=== PATIENT | male | born 1970 | race Caucasian/White ===

== ENCOUNTER 2020-10-04 15:22 | Emergency (ER) | payer MEDICARE ==
[~2020-10-04] VITALS: Ht 182.9 cm; Wt 182.3 kg
== END 2020-10-04 23:00 | disposition home or self-care (01) ==
LOC: ER 15:22
DX: D64.9 Anemia, unspecified (principal); E11.9 Type 2 diabetes mellitus without complications; E23.0 Hypopituitarism; E22.0 Acromegaly and pituitary gigantism
CPT/HCPCS: 36415; 36430; 80053; 82272; 85025; 86850; 86900; 86901; 86923; 93005; 93010; 99283-25; J7030; P9016

== ENCOUNTER 2020-11-09 17:59 | Inpatient (IN) | payer MEDICARE ==
[~2020-11-09] VITALS: Ht 188 cm; Wt 185.0 kg
[~2020-11-09 17:59] MED LIST: ALEVE220 MG PO; ANDROGEL TOP; Aspir 8181 MG PO; DESM.01SO; HYDACE5325 PO; HYDCOR10 PO; LEVOTHYROXINE200 MCG PO; LEVSOD200 PO; LORA10ER PO; METF500 PO; METO100ER PO; METO25ER PO; MULVITA PO; NAPR550 PO; OMEP20ER PO; OXYACE5T PO; TRAM50 PO; VITAMIN E PO; [UNRECOGNIZED DRUG - OTHER] SQ
[2020-11-09 19:20] LABS: BASOPHILS ABSOLUTE AUTO 0.18 K/mm3 (0.00-0.23); BASOPHILS PERCENT AUTO 2 % (0-2); EOSINOPHILS ABSOLUTE AUTO 0.63 K/mm3 (0.00-0.68); EOSINOPHILS PERCENT AUTO 7 % (0-6); Hematocrit 33.2 % (37.0-53.0); Hemoglobin 9.2 g/dL (13.5-17.5); IMMATURE GRAN ABSOLUTE AUTO 0.15 K/mm3 (0.00-0.10); IMMATURE GRAN PERCENT AUTO 2 % (0-1); LYMPHOCYTES ABSOLUTE AUTO 2.26 K/mm3 (0.84-5.20); LYMPHOCYTES PERCENT AUTO 25 % (21-46); MONOCYTES ABSOLUTE AUTO 1.51 K/mm3 (0.16-1.47); MONOCYTES PERCENT AUTO 17 % (4-13); Mean Corpuscular HGB 19.4 pg (26.0-34.0); Mean Corpuscular HGB Conc 27.7 g/dL (31.5-36.5); Mean Corpuscular Volume 70 fL (80-100); NEUTROPHILS ABSOLUTE AUTO 4.34 K/mm3 (1.96-9.15); NEUTROPHILS PERCENT AUTO 48 % (41-73); NRBC ABSOLUTE 0.03 K/mm3 (0.00-0.02); NRBC Auto 0.3 /100 WBC (0.0-0.2); Platelet Count 172 K/mm3 (150-400); RDW Coefficient Variation 22.9 % (11.7-14.2); RDW Standard Deviation 54.6 fL (35.1-46.3); Red Blood Cell Count 4.74 M/mm3 (4.30-5.90); White Blood Cell Count 9.07 K/mm3 (4.00-11.30)
[2020-11-09 19:46] LABS: Alanine Aminotransfer (ALT/SGP 29 U/L (12-78); Albumin, Blood 2.7 g/dL (3.4-5.0); Albumin/Globulin Ratio 0.6 (0.8-1.8); Alk Phos 138 U/L (50-136); Anion Gap 7 mmol/L (6-16); Aspartate Aminotrans (AST/SGOT 34 U/L (12-37); Bilirubin, Total 2.4 mg/dL (0.1-1.0); Blood Urea Nitrogen 12 mg/dL (8-24); Bun/Creatinine Ratio 12.4 (12.0-20.0); CO2, Blood 25 mmol/L (21-32); Chloride, Blood 108 mmol/L (98-108); Creatinine, Blood 0.97 mg/dL (0.60-1.20); Globulin, Blood 4.8 g/dL (2.2-4.0); Glomerular Filtration Rate >60 (60-); Glucose, Blood 154 mg/dL (70-99); Potassium, Blood 3.8 mmol/L (3.5-5.5); Sodium, Blood 140 mmol/L (136-145); Total Protein, Blood 7.5 g/dL (6.4-8.2); Troponin I <0.015 ng/mL (0.000-0.040)
[2020-11-09 21:28] LABS: Source, Urine Catheter
[2020-11-09 21:30] LABS: Bilirubin, Urine Neg (Neg); Blood, Urine Neg (Neg); Glucose Qualitative, Urine Neg (Neg); Ketones, Urine Neg (Neg); Leukocyte Esterase, Urine 1+ (Neg); Nitrite, Urine Neg (Neg); Protein, Urine Neg (Neg); Urobilinogen, Urine 3+ (Normal); pH, Urine 6.5 (5.0-8.0)
[2020-11-09 21:42] LABS: U Amphetamine Screen Not Detected; U Barbituate Screen Not Detected; U Benzodiazapine Screen Not Detected; U Cocaine Screen Not Detected; U Methadone Screen Not Detected; U Methamphetamine Screen Not Detected
[2020-11-09 21:43] LABS: U Buprenorphine Screen Not Detected; U Cannabinoids Screen Not Detected; U Opiates Screen Not Detected; U Oxycodone Screen Not Detected; U Phencyclidine Screen Not Detected; U Propoxyphene Screen Not Detected
[2020-11-09 21:44] LABS: Appearance, Urine Clear (Clear); Color, Urine Yellow (P-Yellow)
[2020-11-09 21:45] LABS: Bacteria Rare /hpf; Red Blood Cells, Urine Not Seen /hpf (0-2); Squamous Epithelial Cells Not Seen /hpf (Few)
--- NOTE | 2020-11-10 06:06 | NUR ---
SHIFT SUMMARY PT ARRIVED TO THE UNIT AROUND 314. OVERHEAD LIFT WAS USED TO TRANSFER THE PT TO THE BED. PT WAS ALERT AND ORIENTED TO SELF, FAMILY, AND PLACE, HE WAS UNSURE HOW HE GOT TO THE HOSPITAL, HE DID NOT KNOW THE YEAR AND WAS VERY FORGETFUL. PT HAD SLURRED SPEECH AND WAS DIFFICULT TO UDERSTAND. HE SHOWED MINIMAL L SIDED WEAKNESS WITH NO ARM DRIFT. PT ABLE TO FOLLOW DIRECTIONS, PUPILS MATTHEW. VITALS STABLE WITH BP 130-140'S SYSTOLIC. HR 80'S. O2 SATS >90% ON ROOM AIR, WITH CLEAR SOUNDING LUNGS. PT HAS SIGNIFICANT DEEP PUTTING EDEMA BLE. AT BEDSIDE ABLE TO ANSWER MOST HX QUESTIONS. PT ABLE TO USE URINAL TO VOID. PT NEURO STAUS DID NOT CHANGE T/O THE NIGHT. PT IS A MAX ASSIST DUE TO SIZE AND WEAKNESS. STATES THIS NEURO IS NOT HIS BASELINR, HE IS USUALLY ALERT, ORIENTED.
[2020-11-10 07:37] LABS: Free Thyroxine 1.33 ng/dL (0.70-1.60); Thyroid Stimulating Hormone <0.005 uIU/mL (0.360-4.800)
--- NOTE | 2020-11-10 10:47 | NUR ---
The pt is drowsy, confused. ST Leah Salinas was here to evaluate the patient. He is able to state his name, follow directions at times, and knows that he is in the hospital. However, he is impulsive and forgets his limitations. PERRL. Facial expressions are symmetrical. He has difficulty expressing himself, and cognitive impairment/judgement are present. Left sided weakness and uncoordination noted of the left arm/hand.
--- NOTE | 2020-11-10 10:58 | NUR ---
Call to Dr. Sarabia at this time. Gave her phone number for Dr. Lynne.
--- NOTE | 2020-11-10 11:25 | NUR ---
Dr Sarabia here to see the patient.
--- NOTE | 2020-11-10 12:33 | NUR ---
Call to regarding pt's growth hormone dose. STates he doesn't take it any longer. Updated of pt's condition and plan as it is right now; informed her of visiting hours and rules.
[2020-11-10] MEDS ORDERED: VICTOZA 2-0.6 MG/0.1 SC (12:35)
--- NOTE | 2020-11-10 12:44 | NUR ---
awakes easily. Denies pain, states that his mouth tastes nasty.
--- NOTE | 2020-11-10 14:53 | NUR ---
Daughter Dominga is at the bedside, and she spoke with Dr. Sarabia who came back to round on the patient. Phone call made to pt's to give her an update, at Dominga's request. Will continue to update family when angiogram is completed and more information is known.
--- NOTE | 2020-11-10 16:16 | NUR ---
Raúl, assistant broker to Dr. Young here to see the patient. Daughter Dominga is looking on at bedside.
--- NOTE | 2020-11-10 18:56 | NUR ---
ANGIO Call from [facility] to say that the cervical angiogram was completed, but unable to get all of the pictures since the pt was moving around a lot. States he was having so much shoulder pain that he couldn't be still. Expect pt return to PCU 4 shortly.
--- NOTE | 2020-11-10 23:18 | NUR ---
22:40: TELEPHONE CALL TO DIPESH NUNN: PT IS C/O PAIN IN RIGHT SHOULDER. CHRONIC PAIN MAKING IT DIFFICULT FOR PT TO REST. VERBAL ORDER, READ BACK, GIVE 25 MCG OF FENTANYL IV ONCE. IF NO PAIN RELIEF, GIVE A SECOND DOSE OF 25 MCG OF FENTANYL.
--- NOTE | 2020-11-11 03:11 | NUR ---
50 YO MALE ADMITTED FOR COGNITIVE DEFICITS AND MUSCULAR WEAKNESS DECLINING OVER THE PAST FEW MONTHS. PT EXHIBITS DELAYED RESPONSES TO QUESTIONS ABOUT MEDICAL HISTORY. HE IS A & O TO FAMILY, SURROUNDINGS, PLACE. HE REQUIRES REDIRECTION AND REORIENTATION TO CALL LIGHT, CUEING TO EAT SLOWLY, AND NURSING REMINDERS TO NOT FLEX HIS RIGHT LEG WITH THE SITE OF HIS ANGIOGRAM. ANGIOGRAM SITE IS COVERED WITH A CLEAR DRESSING, NO SWELLING, REDNESS, BLEEDING NOTED. ST 100'S, DENIES CHEST PAIN OR SOB. C/O PAIN TO HIS RIGHT SHOULDER, AND GENERALIZED PAIN THAT IS RELIEVED BY REPOSITIONING AND PRN PAIN MEDICATION. SATING ABOVE 94% ON ROOM AIR. CALL LIGHT IN REACH, WILL CONTINUE TO MONITOR.
--- NOTE | 2020-11-11 06:08 | NUR ---
SHIFT SUMMARY PT'S DIET WAS ADVANCED TOLERATED, HE TOLERATED JELLO, APPLESAUCE, SALTINES WELL WITH A FEEDER AND SUPERVISION AT BEDSIDE. ABLE TO SWALLOW PILLS WITHOUT APPARENT DIFFICULTY. VOIDING WITH URINAL, MAY REQUIRE STANDBY ASSISTANCE AT TIMES TO USE THE URINAL. PT RECEIVED A BED BATH FROM [facility], AFTERWARDS WAS MORE TALKATIVE, ABLE TO TRACK DURING CONVERSATION, AND SHOWED INCREASED STRENGTH IN BILAT HANDS AND FEET. WILL CONTINUE TO MONITOR, CALL LIGHT AT BEDSIDE.
--- NOTE | 2020-11-11 13:12 | NUR ---
ADMIT: 11/09/2020 DISCHARGE: DX: Renal Insufficiency CC: Yves Mack CALL: RESIDENCE: HomeCAREGIVER: Alize Gonsales, Spouse / Partner, MG:Renal insufficiency, HLD, Hypothyroidism, HTN, GERDDME: NoneCCM: [facility]: None
--- NOTE | 2020-11-11 17:46 | NUR ---
END OF SHIFT SUMMARY: SANDING MACHINE OPERATOR WORKING WITH SAW Kothari ASSUMED CARE OF PATIENT AROUND 0700. PATIENT IS ALERT AND ORIENTED. PT HAS DIFFICULTY FINDING THE WORD HE WANTS TO SAY AT TIMES BUT IS ORIENTED. PT HAS GOOD REBAR WORKER STRENGTH BILATERALLY. HE HAS GOOD DORSAL AND PEDIAL FLEXTION AND EXTENSION AND BILATERAL UPPER EXTREMITY WERE 5/5. PATIENTS STATES THAT HE FEELS LIKE HE HAS MADE GOOD IMPROVEMENTS. PATIENT HAS A RIGHT GROIN SITE FROM A SPINAL ANGIOGRAM THAT LOOKS GOOD. NO HEMATOMAS OR ACTIVE BLEEDING. PATIENT WORKED WITH PT AND SPEECH THERAPY TODAY. THERE WAS DISCUSSION ABOUT THE PATIENT BEING TRANSFERED TO [facility] OR [facility]. AT THIS TIME PROVIDER HAS DECIDED TO NOT TRANSFER, THIS MAY BE CHANGED. IS AT BEDSIDE AND REPROTED TO THE PROVIDER THAT HE GETS SIMILAR SYMPTOMS OF ONE SIDED WEAKNESS AND CONFUSION WHEN HE IS NOT ON HIS STEROIDS. TRANSFERING HOSPITAL IS DECIDED WHETHER THIS IS MORE CHRONIC THAN ACUTE. PATIENT IS RESTING IN BED. BED IS IN THE LOWEST POSITION. CALL LIGHT IS WITHIN REACH.
[2020-11-12 03:55] LABS: BASOPHILS ABSOLUTE AUTO 0.03 K/mm3 (0.00-0.23); BASOPHILS PERCENT AUTO 0 % (0-2); EOSINOPHILS PERCENT AUTO 0 % (0-6); Hematocrit 30.1 % (37.0-53.0); Hemoglobin 8.3 g/dL (13.5-17.5); IMMATURE GRAN ABSOLUTE AUTO 0.41 K/mm3 (0.00-0.10); IMMATURE GRAN PERCENT AUTO 2 % (0-1); LYMPHOCYTES PERCENT AUTO 6 % (21-46); MONOCYTES ABSOLUTE AUTO 1.36 K/mm3 (0.16-1.47); MONOCYTES PERCENT AUTO 7 % (4-13); Mean Corpuscular HGB 20.1 pg (26.0-34.0); Mean Corpuscular HGB Conc 27.6 g/dL (31.5-36.5); Mean Corpuscular Volume 73 fL (80-100); NEUTROPHILS ABSOLUTE AUTO 15.89 K/mm3 (1.96-9.15); NEUTROPHILS PERCENT AUTO 84 % (41-73); NRBC ABSOLUTE 0.02 K/mm3 (0.00-0.02); NRBC Auto 0.1 /100 WBC (0.0-0.2); Platelet Count 178 K/mm3 (150-400); Red Blood Cell Count 4.12 M/mm3 (4.30-5.90); White Blood Cell Count 18.89 K/mm3 (4.00-11.30)
[2020-11-12 03:57] LABS: Mean Platelet Volume 10.4 fL (9.1-12.4)
[2020-11-12 04:14] LABS: Alanine Aminotransfer (ALT/SGP 26 U/L (12-78); Albumin, Blood 2.4 g/dL (3.4-5.0); Albumin/Globulin Ratio 0.6 (0.8-1.8); Alk Phos 115 U/L (50-136); Anion Gap 6 mmol/L (6-16); Aspartate Aminotrans (AST/SGOT 31 U/L (12-37); Bilirubin, Total 1.7 mg/dL (0.1-1.0); Blood Urea Nitrogen 14 mg/dL (8-24); Bun/Creatinine Ratio 13.2 (12.0-20.0); CO2, Blood 25 mmol/L (21-32); Calcium, Blood 8.5 mg/dL (8.5-10.1); Chloride, Blood 104 mmol/L (98-108); Creatinine, Blood 1.06 mg/dL (0.60-1.20); Globulin, Blood 4.2 g/dL (2.2-4.0); Glomerular Filtration Rate >60 (60-); Glucose, Blood 305 mg/dL (70-99); Potassium, Blood 4.1 mmol/L (3.5-5.5); Sodium, Blood 135 mmol/L (136-145); Total Protein, Blood 6.6 g/dL (6.4-8.2)
--- NOTE | 2020-11-12 04:43 | NUR ---
SHIFT SUMMARY VSS. PATIENT IS ALERT AND ORIENTED X 4. PATIENT RESTED WELL THROUGHOUT THE NIGHT. NO NEURO DEFICITS NOTED. PATIENT HAS GENERALIZED WEAKNESS AND WAS EXPERIENCING DIFFICULTLY SITUATING HIMSELF IN BED. NO ACUTE CHANGES NOTED OVER SHIFT. WILL CONTINUE TO MONITOR UNTIL END OF SHIFT.
--- NOTE | 2020-11-12 17:54 | NUR ---
END OF SHIFT NOTE: CUSTOMER SUPPLY CHAIN ANALYST WORKING WITH SAW JoseYemi ASSUMED CARE FOR PATIENT AROUND 0700. PATIENT IS ALERT AND ORIENTED X4. LEFT SIDED NEGLECT HAS RESOLVED. PATIENT WORKED WITH PHYSCIAL THERAPY TODAY WHO STATES THAT HE IS DOING WELL AND IS ABLE TO BE SBA WITH A GAIT BELT. PATIENT HAS BEEN GETTING UP TO USE THE RESTROOM. IS AT BEDSIDE AND STATES THAT HE IS NOW GETTING AROUND BETTER THAN HE HAS BEEN FOR THE PAST FEW WEEKS. VSS. GLUCOSE HAS BEEN ELEVATED AND COVERAGE HAS BEEN GIVEN. PROVIDER SAW HIM TODAY AND WOULD TO START TAPERING HIS STEROIDS DOWN BEFORE HE CAN GO HOME. PATIENT HAS NO NEW COMPALINTS AT THIS TIME. HE IS SITTING UP IN A RECLINER TALKING WITH HIS . CALL LIGHT IS WITHIN REACH. PATIENT STATES HE IS FEELING A LOT BETTER.
[2020-11-13 04:15] LABS: BASOPHILS ABSOLUTE AUTO 0.03 K/mm3 (0.00-0.23); BASOPHILS PERCENT AUTO 0 % (0-2); EOSINOPHILS ABSOLUTE AUTO 0.04 K/mm3 (0.00-0.68); EOSINOPHILS PERCENT AUTO 0 % (0-6); Hematocrit 30.2 % (37.0-53.0); Hemoglobin 8.4 g/dL (13.5-17.5); IMMATURE GRAN ABSOLUTE AUTO 0.34 K/mm3 (0.00-0.10); IMMATURE GRAN PERCENT AUTO 2 % (0-1); LYMPHOCYTES ABSOLUTE AUTO 1.39 K/mm3 (0.84-5.20); LYMPHOCYTES PERCENT AUTO 10 % (21-46); MONOCYTES ABSOLUTE AUTO 1.35 K/mm3 (0.16-1.47); MONOCYTES PERCENT AUTO 10 % (4-13); Mean Corpuscular HGB 20.5 pg (26.0-34.0); Mean Corpuscular HGB Conc 27.8 g/dL (31.5-36.5); Mean Corpuscular Volume 74 fL (80-100); NEUTROPHILS ABSOLUTE AUTO 10.94 K/mm3 (1.96-9.15); NEUTROPHILS PERCENT AUTO 78 % (41-73); NRBC ABSOLUTE 0.02 K/mm3 (0.00-0.02); NRBC Auto 0.1 /100 WBC (0.0-0.2); Platelet Count 162 K/mm3 (150-400); RDW Coefficient Variation 25.7 % (11.7-14.2); RDW Standard Deviation 55.1 fL (35.1-46.3); White Blood Cell Count 14.09 K/mm3 (4.00-11.30)
[2020-11-13 04:35] LABS: Alanine Aminotransfer (ALT/SGP 33 U/L (12-78); Albumin, Blood 2.4 g/dL (3.4-5.0); Albumin/Globulin Ratio 0.6 (0.8-1.8); Alk Phos 114 U/L (50-136); Anion Gap 4 mmol/L (6-16); Aspartate Aminotrans (AST/SGOT 38 U/L (12-37); Bilirubin, Total 1.4 mg/dL (0.1-1.0); Blood Urea Nitrogen 13 mg/dL (8-24); Bun/Creatinine Ratio 13.8 (12.0-20.0); CO2, Blood 27 mmol/L (21-32); Calcium, Blood 8.3 mg/dL (8.5-10.1); Chloride, Blood 104 mmol/L (98-108); Creatinine, Blood 0.94 mg/dL (0.60-1.20); Globulin, Blood 4.2 g/dL (2.2-4.0); Glomerular Filtration Rate >60 (60-); Glucose, Blood 311 mg/dL (70-99); Potassium, Blood 4.1 mmol/L (3.5-5.5); Sodium, Blood 135 mmol/L (136-145); Total Protein, Blood 6.6 g/dL (6.4-8.2)
--- NOTE | 2020-11-13 05:36 | NUR ---
SHIFT SUMMARY NO ACUTE CHANGES THIS SHIFT. PT AXO. IN SR. VSS. SHOWS CONTINUED IMPROVEMENT NEUROLOGICALLY/MUSCULOSKELETAL. NO DEFICITS NOTED UNILATERALLY. PT TOLERATING STANDING AND WALKING WELL, STILL GETS TIRED EASILY BUT PT STATES "THIS IS THE BEST I HAVE WALKED IN A MONTH". OTHERWIE, PT HAS BEEN RESTING OFF AND ON THIS SHIFT. WCTM.
--- NOTE | 2020-11-13 12:04 | NUR ---
TRANSFERED TO MEDICAL FLOOR TO 334. REPORT GIVEN TO ALISHA RIVERA. PT ALERT AND ORIENTED X4. VSS. NO NEW COMPLAINTS FROM THE PATIENT PRIOR TO LEAVING THE UNIT. ALL BELONGINGS, INCLUDING WALKER WAS SENT TO THE MEDICAL FLOOR WITH THE PATIENT.
--- NOTE | 2020-11-13 17:42 | NUR ---
SHIFT SUMMARY PATIENT TRANSFERED TO THE FLOOR MID-SHIFT. PATIENT ALERT AND ORIENTED UPON ARRIVAL. PATIENT TRANSFERED FROM THE GURNEY TO THE BED INDEPENDENTLY WITH SBA. PATIENT MADE COMFORTABLE AND ORIENTED TO THE ROOM. PATIENT'S FAMILY IN THE ROOM DURING VISITING HOURS. PATIENT SHOWERED WITH FAMILY ASSISTANCE PER PATIENT REQUEST. PATIENT SITTING UP IN BED, DENIES FURTHER NEEDS FOR THE REMAINDER OF THE SHIFT. PATIENT'S REMAINS IN THE ROOM VISITING. PATIENT CURRENTLY SITTING UP ON THE BEDSIDE EATING DINNER.
[2020-11-13] MEDS ORDERED: ATOR10 PO (22:50)
[2020-11-13] MEDS ORDERED: DESMOPRESSIN A0.1 MG PO (22:53)
[2020-11-13] MEDS ORDERED: DESMOPRESSIN A0.1 M1 PO (22:54)
[2020-11-13] MEDS ORDERED: DEPO-TESTO200 MG/1 M IM (22:55)
[2020-11-13] MEDS ORDERED: LEVSOD25 PO (22:56)
[2020-11-13] MEDS ORDERED: BUME1 PO (22:58)
[2020-11-13] MEDS ORDERED: HYDCOR10 PO (23:00)
--- NOTE | 2020-11-14 04:12 | NUR ---
SUMMARY: PT A/OX4, CALLS APPROPRIATELY AND IS SBA IN ROOM D/T WEAKNESS AND POSSIBLE FALL RISK. HE HAD X1 XL FORMED BM THIS SHIFT AND VOIDS W/O ISSUES. SUGARFREE SNACKS WERE PROVIDED PRN BUT PT FOREIGNQ REQUESTED PUDDING AND JANICE CRACKERS DESPITE ADA DIET REMINDERS. HE REMAINS NSR AT 90'S BPM ON TELEMETRY. BRUISED L.FOOT NOTED BUT PT DENIES KNOWLEGE OF INJURY. NO ACUTE CHANGES, VSS/AFEBRILE. WCTM AND REPORT TO DAY RN.
[2020-11-14 05:17] LABS: BASOPHILS ABSOLUTE AUTO 0.02 K/mm3 (0.00-0.23); BASOPHILS PERCENT AUTO 0 % (0-2); EOSINOPHILS ABSOLUTE AUTO 0.08 K/mm3 (0.00-0.68); EOSINOPHILS PERCENT AUTO 1 % (0-6); Hematocrit 33.1 % (37.0-53.0); Hemoglobin 9.3 g/dL (13.5-17.5); IMMATURE GRAN ABSOLUTE AUTO 0.28 K/mm3 (0.00-0.10); IMMATURE GRAN PERCENT AUTO 3 % (0-1); LYMPHOCYTES ABSOLUTE AUTO 1.13 K/mm3 (0.84-5.20); LYMPHOCYTES PERCENT AUTO 11 % (21-46); MONOCYTES ABSOLUTE AUTO 0.83 K/mm3 (0.16-1.47); MONOCYTES PERCENT AUTO 8 % (4-13); Mean Corpuscular HGB 20.9 pg (26.0-34.0); Mean Corpuscular HGB Conc 28.1 g/dL (31.5-36.5); Mean Corpuscular Volume 74 fL (80-100); NEUTROPHILS ABSOLUTE AUTO 7.59 K/mm3 (1.96-9.15); NEUTROPHILS PERCENT AUTO 76 % (41-73); NRBC ABSOLUTE 0.02 K/mm3 (0.00-0.02); NRBC Auto 0.2 /100 WBC (0.0-0.2); Platelet Count 143 K/mm3 (150-400); RDW Coefficient Variation 26.8 % (11.7-14.2); RDW Standard Deviation 55.4 fL (35.1-46.3); Red Blood Cell Count 4.46 M/mm3 (4.30-5.90); White Blood Cell Count 9.93 K/mm3 (4.00-11.30)
[2020-11-14 05:39] LABS: Alanine Aminotransfer (ALT/SGP 51 U/L (12-78); Albumin, Blood 2.7 g/dL (3.4-5.0); Albumin/Globulin Ratio 0.6 (0.8-1.8); Alk Phos 140 U/L (50-136); Anion Gap 5 mmol/L (6-16); Aspartate Aminotrans (AST/SGOT 56 U/L (12-37); Bilirubin, Total 1.6 mg/dL (0.1-1.0); Blood Urea Nitrogen 12 mg/dL (8-24); Bun/Creatinine Ratio 13.1 (12.0-20.0); CO2, Blood 27 mmol/L (21-32); Calcium, Blood 8.7 mg/dL (8.5-10.1); Chloride, Blood 104 mmol/L (98-108); Creatinine, Blood 0.92 mg/dL (0.60-1.20); Globulin, Blood 4.5 g/dL (2.2-4.0); Glomerular Filtration Rate >60 (60-); Glucose, Blood 330 mg/dL (70-99); Potassium, Blood 3.9 mmol/L (3.5-5.5); Sodium, Blood 136 mmol/L (136-145); Total Protein, Blood 7.2 g/dL (6.4-8.2)
--- NOTE | 2020-11-14 09:08 | NUR ---
STUDENT ASSESSMENT REVIEW I HAVE REVIEWED THE STUDENT'S ASSESSMENT, I HAVE COMPLETED MY OWN ASSESSMENT, AND I AGREE WITH THE STUDENT'S FINDINGS.
--- NOTE | 2020-11-14 15:26 | NUR ---
DISCHARGE SUMMARY PATIENT DISCHARGED TO HOME VIA PERSONAL AUTOMOBILE BY DAUGHTER AND . PATIENT ALERT AND ORIENTED. PATIENT WORKED WITH OCCUPATIONAL THERAPY THIS SHIFT. PATIENT WITH EQUAL STRENTH BILATERALLY THIS SHIFT. PATIENT VERBALLY AGREED AND UNDERSTOOD DISCHARGE INSTRUCTIONS. PATIENT DENIES ADDITIONAL NEEDS AT THIS TIME. PATIENT WHEELED OUT TO CAR BY THIS SCHOOL INSPECTOR WITH AND DAUGHTER WAITING IN CAR.
--- NOTE | 2020-11-14 16:13 | NUR ---
11/14/20- Per chart review with Dr. Flores, pt is stable to d/c home. Met with pt and he states that pt's or daughter will come to get him. His pharmacy is [facility] on [address]. His is able to help him in the home with any needs. Pt has no DME needs at this time. Pt states that there are a few stairs to get into the home and there are railings. He has no concerns using them. Reviewed MICHELLE letter, pt acknowledged understanding. -yoko
== END 2020-11-14 15:15 | disposition home or self-care (01) | DRG 644 ==
LOC: ER 17:59 → PCU 11-10 00:55 → MEDS 11-13 11:10 → ENPENDDIS 11-14 13:04 → MEDS 11-14 15:15
PROVIDERS: Emergency Medicine; Family Medicine; ADMIT Internal Medicine
PROC: B31R1ZZ Fluoroscopy of Intracranial Arteries using Low Osmolar Contrast (ICD-10-PCS; principal; 2020-11-10)
DX: E27.40 Unspecified adrenocortical insufficiency (principal); Z68.43 Body mass index [BMI] 50.0-59.9, adult; R41.4 Neurologic neglect syndrome; G93.49 Other encephalopathy; N39.0 Urinary tract infection, site not specified; D53.9 Nutritional anemia, unspecified; R47.81 Slurred speech; E89.3 Postprocedural hypopituitarism; I67.9 Cerebrovascular disease, unspecified; E86.0 Dehydration; E11.9 Type 2 diabetes mellitus without complications; E22.0 Acromegaly and pituitary gigantism; E66.01 Morbid (severe) obesity due to excess calories; E03.9 Hypothyroidism, unspecified; I10 Essential (primary) hypertension; Z96.643 Presence of artificial hip joint, bilateral; Z79.82 Long term (current) use of aspirin; Z79.52 Long term (current) use of systemic steroids; Z79.899 Other long term (current) drug therapy; Z79.84 Long term (current) use of oral hypoglycemic drugs; Z98.890 Other specified postprocedural states
CPT/HCPCS: 36223; 36226-50; 36415; 70450; 70496; 70498; 80053; 81001; 82947; 83880; 84439; 84443; 84484; 85025; 87086; 92507; 92523; 92610; 93005; 93010; 96376; 97110; 97116; 97162; 97166; 97530; 97535; 99152; 99153; 99285-25; A9270; C1760; C1769; C1887; C1894; J1644; J1650; J1720; J1885; J2250; J3010; J7030; J7040; J7050; Q9967

== ENCOUNTER 2020-12-19 16:05 | Observation (INO) | payer MEDICARE ==
[~2020-12-19] VITALS: Ht 182.9 cm; Wt 181.4 kg
[~2020-12-19 16:05] MED LIST changes: +ATOR10 PO; +BUME1 PO; +DEPO-TESTO200 MG/1 M IM; +DESMOPRESSIN A0.1 M1 PO; +DESMOPRESSIN A0.1 MG PO; +LEVSOD25 PO; +VICTOZA 2-0.6 MG/0.1 SC
[2020-12-19] MEDS ORDERED: VITAMIN D31000 UNI1 PO (16:25)
[2020-12-19] MEDS ORDERED: FISH OIL 1,2001 EAC7 PO (16:25)
[2020-12-19] MEDS ORDERED: Apple Cider Vi300 MG PO (16:26)
[2020-12-19] MEDS ORDERED: HYDCOR10 PO ×2 (21:42→21:49)
[2020-12-19] MEDS ORDERED: Prilosec10 M1 PO (21:43)
[2020-12-19] MEDS ORDERED: BUME1 PO (21:44)
[2020-12-20 02:19] LABS: SARS-Cov-2 (COVID-19) PCR, MMC NEGATIVE (NEGATIVE)
--- NOTE | 2020-12-20 04:34 | NUR ---
SHIFT SUMMARY ER ADMIT THIS SHIFT WITH L ANKLE FX. ORTHO CONSULTED IN ER AND PLANS TO TAKE PT FOR ORIF TODAY. NPO SINCE MIDNIGHT. USING URINAL TO VOID. L ANKLE SPLINTED AND RADHA WRAP REMAINS CDI. LLE ELEVATED ON PILLOWS. 1 PAIN PILL + IV TORADOL FOR PAIN PER ORDERS. PT USES CALL LIGHT APPRORPRIATELY.
--- NOTE | 2020-12-20 10:01 | NUR ---
PCP: KAMILLE Saucedo Inpatient Physician: Dr. Galdamez ADMIT: 12/19/20 Dx: Elisa smith. CC: Yves Ordaz Recent Hospitalizations: 11/09/20 - 11/14/20 RENAL INSUFFICIENCY CODE STATUS: Full code. is power of corporate associate attorney RESIDENCE: [address] [place] [id number] CAREGIVER: Alize Gonsales, Spouse / Partner,
--- NOTE | 2020-12-20 11:30 | NUR ---
pt left for surgery at this time. iv hydrocortisone given per dr saul for stress dose. r/t adrenal insufficiency.
--- NOTE | 2020-12-20 12:04 | NUR ---
History, Chart, Medications and Allergies reviewed before start of procedure.Lungs clear T/O to Auscultation. Patient confirms NPO status and agrees with scheduled surgery. WILL PUT GLASSES IN PACU. PT RECEIVED A STRESS DOSE OF HYDROCORTOSINE. LABS DRAWN.
[2020-12-20 12:25] LABS: BASOPHILS ABSOLUTE AUTO 0.05 K/mm3 (0.00-0.23); BASOPHILS PERCENT AUTO 1 % (0-2); EOSINOPHILS ABSOLUTE AUTO 0.28 K/mm3 (0.00-0.68); EOSINOPHILS PERCENT AUTO 3 % (0-6); Hematocrit 32.9 % (37.0-53.0); Hemoglobin 9.7 g/dL (13.5-17.5); IMMATURE GRAN PERCENT AUTO 1 % (0-1); LYMPHOCYTES ABSOLUTE AUTO 0.89 K/mm3 (0.84-5.20); LYMPHOCYTES PERCENT AUTO 10 % (21-46); MONOCYTES ABSOLUTE AUTO 0.71 K/mm3 (0.16-1.47); MONOCYTES PERCENT AUTO 8 % (4-13); Mean Corpuscular HGB 24.1 pg (26.0-34.0); Mean Corpuscular HGB Conc 29.5 g/dL (31.5-36.5); Mean Corpuscular Volume 82 fL (80-100); Mean Platelet Volume 10.2 fL (9.1-12.4); NEUTROPHILS ABSOLUTE AUTO 6.99 K/mm3 (1.96-9.15); NEUTROPHILS PERCENT AUTO 77 % (41-73); Platelet Count 122 K/mm3 (150-400); RDW Coefficient Variation 24.8 % (11.7-14.2); RDW Standard Deviation 74.4 fL (35.1-46.3); Red Blood Cell Count 4.03 M/mm3 (4.30-5.90); White Blood Cell Count 9.02 K/mm3 (4.00-11.30)
[2020-12-20 12:55] LABS: Alanine Aminotransfer (ALT/SGP 43 U/L (12-78); Albumin, Blood 2.2 g/dL (3.4-5.0); Albumin/Globulin Ratio 0.5 (0.8-1.8); Alk Phos 165 U/L (50-136); Anion Gap 1 mmol/L (6-16); Aspartate Aminotrans (AST/SGOT 40 U/L (12-37); Bilirubin, Total 1.9 mg/dL (0.1-1.0); Blood Urea Nitrogen 16 mg/dL (8-24); Bun/Creatinine Ratio 17.6 (12.0-20.0); CO2, Blood 33 mmol/L (21-32); Calcium, Blood 8.4 mg/dL (8.5-10.1); Chloride, Blood 104 mmol/L (98-108); Creatinine, Blood 0.91 mg/dL (0.60-1.20); Globulin, Blood 4.1 g/dL (2.2-4.0); Glomerular Filtration Rate >60 (60-); Glucose, Blood 156 mg/dL (70-99); Potassium, Blood 4.6 mmol/L (3.5-5.5); Sodium, Blood 138 mmol/L (136-145); Total Protein, Blood 6.3 g/dL (6.4-8.2)
--- NOTE | 2020-12-20 13:34 | NUR ---
12/20/20 Hiram4 [id number] USED FOR THE PROCEDURE.
--- NOTE | 2020-12-20 16:11 | NUR ---
PT ARRIVED FROM PACU. DENIES PAIN IN LLE. WIGGLES TOES AND HAS FULL SENSATION. CAP REFILL <3. PT WILL CALL IF HE HAS ANY NUMBNESS OR IF PAIN INCREASES. HE DENIES SOB AND IS CURRENTLY ON ROOM AIR. CURRENTLY SITTING UP IN BED TALKIN ON THE PHONE WITH IN ROOM. HE HAS TOLERATED SIPS OF WATER AND IS ATTEMPTING PO INTAKE. CALL LIGHT IN REACH.
--- NOTE | 2020-12-20 17:37 | NUR ---
NO ACUTE CHANGES SINCE ARRIVAL TO FLOOR PT IS TOLERATING PO WELL WITH NO NAUSEA OR PAIN. CONTINUES TO DENY PAIN. HAS BEEN ON HIS PHONE SPEAKING WITH FAMILY AT THIS TIME. PLAN WILL BE TO WORK WITH PT/OT TOMORROW AND CONTINUE WITH PAIN MANAGEMENT.
[2020-12-21 05:13] LABS: BASOPHILS ABSOLUTE AUTO 0.03 K/mm3 (0.00-0.23); BASOPHILS PERCENT AUTO 0 % (0-2); EOSINOPHILS ABSOLUTE AUTO 0.14 K/mm3 (0.00-0.68); EOSINOPHILS PERCENT AUTO 1 % (0-6); Hematocrit 28.9 % (37.0-53.0); Hemoglobin 8.6 g/dL (13.5-17.5); IMMATURE GRAN ABSOLUTE AUTO 0.19 K/mm3 (0.00-0.10); IMMATURE GRAN PERCENT AUTO 2 % (0-1); LYMPHOCYTES ABSOLUTE AUTO 1.48 K/mm3 (0.84-5.20); LYMPHOCYTES PERCENT AUTO 12 % (21-46); MONOCYTES ABSOLUTE AUTO 1.45 K/mm3 (0.16-1.47); MONOCYTES PERCENT AUTO 11 % (4-13); Mean Corpuscular HGB 24.2 pg (26.0-34.0); Mean Corpuscular HGB Conc 29.8 g/dL (31.5-36.5); Mean Corpuscular Volume 81 fL (80-100); Mean Platelet Volume 10.8 fL (9.1-12.4); NEUTROPHILS ABSOLUTE AUTO 9.57 K/mm3 (1.96-9.15); NEUTROPHILS PERCENT AUTO 74 % (41-73); Platelet Count 145 K/mm3 (150-400); RDW Coefficient Variation 24.6 % (11.7-14.2); RDW Standard Deviation 72.6 fL (35.1-46.3); Red Blood Cell Count 3.55 M/mm3 (4.30-5.90); White Blood Cell Count 12.86 K/mm3 (4.00-11.30)
--- NOTE | 2020-12-21 06:46 | NUR ---
SHIFT SUMMARY POD1 ORIF L ANKLE, A/O X4, VSS, TOLERATING PO, VOIDING, PT HAS BEEN IN BED WAITING PT LATER TODAY, DENIES PAIN T/O SHIFT, PT PLEASANT AND COOPERATIVE WITH ALL NURSING STAFF AND CARE. NO ACUTE EVENTS THIS SHIFT. CALL LIGHT IN REACH, WILL CTM AND REPORT TO DAY RN.
--- NOTE | 2020-12-21 13:48 | NUR ---
USED LIFT TO TRANSFER PT BACK TO BED.
--- NOTE | 2020-12-21 14:49 | NUR ---
12/21/20 Update: Per PT notes SNF recommended due to progress potential with inpatient rehab. Unfortunately pt. is considered bariatric which will create a barrier to SNF placement (weight 399 lbs). Discussed with Dr. Galdamez the concerns regarding placement. Pt. could potentially complete PT with HH at home. I will hold off on moving forward with discussion with pt. and family at this time. Will visit pt. in the am after chart review.
--- NOTE | 2020-12-21 17:09 | NUR ---
SUMMARY NO ACUTE CHANGES T/O SHIFT. TRANSFERRED PT TO LIFT ROOM. ORDERS TO BE NONWB LLE. THERAPY USED LIFT AND TRANSFERRED PT TO RECLINER. PT SAT UP FOR APPROXIMATELY HOUR AND HALF AND THEN ASKED TO RETURN TO BED DUE TO PAIN IN LLE R/T POSITION OF LEG ON RECLINER. PT MEDICATED PER ORDERS FOR PAIN ONCE DURING SHIFT. PT ABLE TO WIGGLE TOES AND HAS BRISK CAP REFILL TO LLE. DRESSING TO LLE CDI. PASSING FLATUS BUT NO BM. COVERED CBGS PER ORDERS. CALL LIGHT IN REACH.
[2020-12-22 04:44] LABS: BASOPHILS ABSOLUTE AUTO 0.04 K/mm3 (0.00-0.23); BASOPHILS PERCENT AUTO 0 % (0-2); EOSINOPHILS ABSOLUTE AUTO 0.35 K/mm3 (0.00-0.68); EOSINOPHILS PERCENT AUTO 4 % (0-6); Hematocrit 28.2 % (37.0-53.0); Hemoglobin 8.4 g/dL (13.5-17.5); IMMATURE GRAN ABSOLUTE AUTO 0.18 K/mm3 (0.00-0.10); IMMATURE GRAN PERCENT AUTO 2 % (0-1); LYMPHOCYTES ABSOLUTE AUTO 1.28 K/mm3 (0.84-5.20); LYMPHOCYTES PERCENT AUTO 13 % (21-46); MONOCYTES ABSOLUTE AUTO 1.26 K/mm3 (0.16-1.47); MONOCYTES PERCENT AUTO 13 % (4-13); Mean Corpuscular HGB 23.9 pg (26.0-34.0); Mean Corpuscular HGB Conc 29.8 g/dL (31.5-36.5); Mean Corpuscular Volume 80 fL (80-100); Mean Platelet Volume 10.3 fL (9.1-12.4); NEUTROPHILS ABSOLUTE AUTO 6.46 K/mm3 (1.96-9.15); NEUTROPHILS PERCENT AUTO 67 % (41-73); Platelet Count 125 K/mm3 (150-400); RDW Coefficient Variation 24.4 % (11.7-14.2); RDW Standard Deviation 71.9 fL (35.1-46.3); Red Blood Cell Count 3.51 M/mm3 (4.30-5.90); White Blood Cell Count 9.57 K/mm3 (4.00-11.30)
--- NOTE | 2020-12-22 07:35 | NUR ---
SHIFT SUMMARY POD2 L ANKLE ORIF, A/O X4, VSS, TOLERATING PO, DENIES PAIN, VOIDING, TO STREAK BM THIS SHIFT BUT PASSING LOTS OF FLATUS. NO ACUTE EVENTS THIS SHIFT, ICE PACK TO L ANKLE. CALL LIGHT IN REACH, REPORT GIVEN TO DAY RN.
--- NOTE | 2020-12-22 14:33 | NUR ---
Update 12/22/20: Discussed options for rehab with pt. this am. He is feeling a bit overwhelmed at this time. I have requested that SNF [facility] review chart for potential rehab stay. Though they are considering accepting pt., he is aware that there is potential they will not accept him. We discussed the alternatives as well including HH PT and aguila lift to assist family in providing care. Will discuss further with patient's when she arrives. Pt. will need a prior auth for SNF if accepted.
--- NOTE | 2020-12-22 17:05 | NUR ---
SUMMARY: PT IS POD2 L ANKLE ORIF. A/O, VSS, CSM INTACT TO L LEG. OT AND PT IN ROOM TODAY TO ASSIST WITH LIFT TRANSFER TO CHAIR, SEE THERAPY NOTES. PT REPORTS PAIN ONLY AFTER MOVEMENT AND THERAPY. PT HAD LARGE BM TODAY. PREVENTATIVE MEPILEX PLACED AT COCCYX. PT TURNED Q2 PRN, L ANKLE ELEVATED AND ICED. MEPILEX ALSO PLACED AT L CALF WHERE THERE APPEARED TO BE AN ABRASION. OTHERWISE NO CHANGE TODAY. INTERNAL COMBUSTION ENGINE ASSEMBLER DISCUSSED DC OPTIONS/REHAB TODAY WITH PT. NO ACUTE CONCERNS.
--- NOTE | 2020-12-23 05:28 | NUR ---
SHIFT SUMMARY: PT POD#3 FOR AN ORIF TO LEFT ANKLE. SPLINT+RADHA C/D/I. PT ABLE TO WIGGLE TOES. CAP REFILL WNL. EXTREMITY ELEVATED ON PILLOW. SCROTUM SWOLLEN AND ELEVATED USING PILLOW CASE. PT ALSO GIVEN ICE PACK PER REQUEST. VOIDING IN URINAL WHICH PT REPORTS IS DIFFICULT D/T SWELLING. PT DENIES NEED FOR PAIN MEDICATION THIS SHIFT. REPOSITIONED T/O SHIFT USING LIFT. PLAN FOR PT/OT. AWAITING POSSIBLE SNF PLACEMENT.
--- NOTE | 2020-12-23 12:04 | NUR ---
12/23/20 - pt has been cleared both medically and from ortho to go either to SNF or home with home health. Spoke with who reports that they are not setup in the home to take him back at this time. She would like him to go to SNF. [facility] declined the pt at both [facility]. Speaking with [facility] care managers, there are no bariatric bends available in the state at this time. Tried to call the and discuss this with her. LMOM to call back. Updated Dr. Galdamez and floor nurse. -kjw
--- NOTE | 2020-12-23 19:32 | NUR ---
SUMMARY: PT IS POD3 L ANKLE ORIF. A/O, VSS. L ANKLE IN SPLINT CDI, ELEVATED ON PILLOWS. PT HAD MINIMAL PAIN. ABLE TO TRANSFER PT TO CHAIR WITH LIFT AND PT/OT WORKED WITH PT, SEE NOTES. CBG'S BETTER TODAY. PT HAD BM X1. SCROTUM IS SWOLLEN. ICED AND ELEVATED TODAY. PT AND PT FAMILY ARE AWARE OF PLAN FOR HH, SEE IMAGE EDITOR NOTES. NO SAFETY CONCERNS AT THIS TIME.
--- NOTE | 2020-12-24 03:55 | NUR ---
PSTIENT ALERT AND ORIENTED. VSS ON RA. DENIES PAIN. L LEG ELEVATED, ICE APPLIED TO SCROTUM. REPOSITIONED Q2HR. USING CALL LIGHT TO MAKE NEEDS KNOWN.
[2020-12-24 04:32] LABS: BASOPHILS ABSOLUTE AUTO 0.06 K/mm3 (0.00-0.23); BASOPHILS PERCENT AUTO 1 % (0-2); EOSINOPHILS ABSOLUTE AUTO 0.42 K/mm3 (0.00-0.68); EOSINOPHILS PERCENT AUTO 4 % (0-6); Hematocrit 28.7 % (37.0-53.0); Hemoglobin 8.6 g/dL (13.5-17.5); IMMATURE GRAN PERCENT AUTO 2 % (0-1); LYMPHOCYTES ABSOLUTE AUTO 1.31 K/mm3 (0.84-5.20); LYMPHOCYTES PERCENT AUTO 13 % (21-46); MONOCYTES ABSOLUTE AUTO 1.18 K/mm3 (0.16-1.47); MONOCYTES PERCENT AUTO 12 % (4-13); Mean Corpuscular HGB 23.9 pg (26.0-34.0); Mean Corpuscular Volume 80 fL (80-100); NEUTROPHILS ABSOLUTE AUTO 6.81 K/mm3 (1.96-9.15); NEUTROPHILS PERCENT AUTO 68 % (41-73); Platelet Count 127 K/mm3 (150-400); RDW Coefficient Variation 23.7 % (11.7-14.2); RDW Standard Deviation 68.6 fL (35.1-46.3); White Blood Cell Count 9.98 K/mm3 (4.00-11.30)
[2020-12-24 04:33] LABS: Mean Platelet Volume 10.7 fL (9.1-12.4)
[2020-12-24 04:49] LABS: Alanine Aminotransfer (ALT/SGP 36 U/L (12-78); Albumin, Blood 1.9 g/dL (3.4-5.0); Albumin/Globulin Ratio 0.5 (0.8-1.8); Alk Phos 145 U/L (50-136); Anion Gap 5 mmol/L (6-16); Aspartate Aminotrans (AST/SGOT 35 U/L (12-37); Bilirubin, Total 1.3 mg/dL (0.1-1.0); Blood Urea Nitrogen 20 mg/dL (8-24); Bun/Creatinine Ratio 24.3 (12.0-20.0); CO2, Blood 28 mmol/L (21-32); Calcium, Blood 7.9 mg/dL (8.5-10.1); Chloride, Blood 104 mmol/L (98-108); Creatinine, Blood 0.82 mg/dL (0.60-1.20); Globulin, Blood 3.9 g/dL (2.2-4.0); Glomerular Filtration Rate >60 (60-); Glucose, Blood 155 mg/dL (70-99); Potassium, Blood 4.5 mmol/L (3.5-5.5); Sodium, Blood 137 mmol/L (136-145); Total Protein, Blood 5.8 g/dL (6.4-8.2)
--- NOTE | 2020-12-24 17:54 | NUR ---
SHIFT SUMMARY PT A&OX4, VSS, POD4 LEFT ANKLE ORIF, SPLINT/RADHA, ELEVATED, DENIES PAIN, RONAL PO, CBG REQ COVERAGE, VOIDING USING URINAL, REPOSITION WITH ASSISTANCE, PT WORKED WITH PT TODAY/UNABLE TO WEIGHT BEAR ON NON-SURGICAL RLE. WILL REPORT TO ONCOMING NOC RN.
--- NOTE | 2020-12-25 05:46 | NUR ---
PT ALERT AND ORIENTED. VSS ON RA. PAIN MANAGED WELL W/ ONE NORCO AND REPOSITIONING. REPOSITIONED Q2HR USING TORI LIFT. USING URINAL, NEEDING ASSISTANCE D/T SWELLING. L LEG ELEVATE ON PILLOWS. USING CALL LIGHT TO MAKE NEEDS KNOWN.
[2020-12-25] MEDS ORDERED: Norco 5-325 Ta1 EACH PO (14:12)
[2020-12-25] MEDS ORDERED: MIRALAX17 GM PO (14:13)
--- NOTE | 2020-12-25 16:32 | NUR ---
DISCHARGE SUMMARY PT A&OX4, VSS, LEFT FLOOR VIA GURNEY WITH TRANSPORT TO GO HOME. AND DAUGHTER TOOK ALL PERSONAL POSSESSIONS INCLUDING DC PACKET AND 1 NARC SCRIPT. DC INS PROVIDED, PT AND FAMILY REP UNDERSTANDING THOSE INSTRUCTIONS, INCLUDING POTENTIAL TRANSPORT COSTS, AFTER SUBMITTING TO PRIVATE INS BY TRANSPORT [email or web address]. IV DC'D.
== END 2020-12-25 16:34 | disposition home or self-care (01) ==
LOC: ER 16:05 → SURS 22:08
PROVIDERS: Internal Medicine; Orthopaedic Surgery; ADMIT Family Medicine
PROC: 0QSH04Z Reposition Left Tibia with Internal Fixation Device, Open Approach (ICD-10-PCS; principal; 2020-12-20 12:30)
PROC: 0QSK04Z Reposition Left Fibula with Internal Fixation Device, Open Approach (ICD-10-PCS; principal; 2020-12-20 12:30)
DX: S82.842A Displaced bimalleolar fracture of left lower leg, initial encounter for closed fracture (principal); X50.0XXA Overexertion from strenuous movement or load, initial encounter; W18.30XA Fall on same level, unspecified, initial encounter; E03.9 Hypothyroidism, unspecified; I10 Essential (primary) hypertension; E27.40 Unspecified adrenocortical insufficiency; E22.0 Acromegaly and pituitary gigantism; E11.65 Type 2 diabetes mellitus with hyperglycemia; D63.8 Anemia in other chronic diseases classified elsewhere; D69.6 Thrombocytopenia, unspecified; D62 Acute posthemorrhagic anemia; E66.01 Morbid (severe) obesity due to excess calories; Z68.43 Body mass index [BMI] 50.0-59.9, adult; Z79.84 Long term (current) use of oral hypoglycemic drugs; Z79.82 Long term (current) use of aspirin; Z20.822 Contact with and (suspected) exposure to COVID-19
CPT/HCPCS: 27810; 36415; 73600; 73610; 73630; 76000; 80053; 82947; 85025; 86850; 86900; 86901; 93005; 93010; 94760; 96374-59; 96375-59; 97110; 97110-CQ; 97162; 97167; 97530; 97530-CQ; 99284-25; A9270; C1713; C1769; C9113; G0378; J0171; J0330; J0690; J1650; J1720; J1815; J1885; J2270; J2370; J2405; J2704; J3010; J7120; U0004

== ENCOUNTER → 2021-04-14 | Outpatient (CLI) | payer MEDICARE ==
[~2021-04-14] MED LIST changes: +Apple Cider Vi300 MG PO; +FISH OIL 1,2001 EAC7 PO; +MIRALAX17 GM PO; +Norco 5-325 Ta1 EACH PO; +Prilosec10 M1 PO; +VITAMIN D31000 UNI1 PO
[2021-04-14 14:02] LABS: Source, Urine Clean Catch
[2021-04-14 18:06] LABS: Appearance, Urine Hazy (Clear); Blood, Urine Neg (Neg); Color, Urine Yellow (P-Yellow); Glucose Qualitative, Urine Neg (Neg); Ketones, Urine Neg (Neg); Leukocyte Esterase, Urine 1+ (Neg); Nitrite, Urine Pos (Neg); Protein, Urine 1+ (Neg); Urobilinogen, Urine 2+ (Normal)
[2021-04-14 18:26] LABS: Bilirubin, Urine 1+ (Neg)
[2021-04-14 18:36] LABS: Bacteria Many /hpf; Red Blood Cells, Urine Not Seen /hpf (0-2); Squamous Epithelial Cells Rare /hpf (Few)
== END | disposition home or self-care (01) ==
LOC: LAB 13:59 → LAB SHORT 13:59 → LAB FUT 03-30 07:40
PROVIDERS: Internal Medicine Endocrinology, Diabetes & Metabolism
DX: R35.0 Frequency of micturition (principal)
CPT/HCPCS: 81001

== ENCOUNTER 2021-06-05 03:50 | Emergency (ER) | payer MEDICARE ==
[~2021-06-05] VITALS: Ht 182.9 cm; Wt 170.0 kg
[2021-06-05 04:09] LABS: BASOPHILS ABSOLUTE AUTO 0.15 K/mm3 (0.00-0.23); BASOPHILS PERCENT AUTO 1 % (0-2); EOSINOPHILS ABSOLUTE AUTO 0.48 K/mm3 (0.00-0.68); EOSINOPHILS PERCENT AUTO 5 % (0-6); Hematocrit 30.1 % (37.0-53.0); Hemoglobin 9.3 g/dL (13.5-17.5); IMMATURE GRAN ABSOLUTE AUTO 0.17 K/mm3 (0.00-0.10); IMMATURE GRAN PERCENT AUTO 2 % (0-1); LYMPHOCYTES ABSOLUTE AUTO 2.24 K/mm3 (0.84-5.20); LYMPHOCYTES PERCENT AUTO 21 % (21-46); MONOCYTES ABSOLUTE AUTO 2.03 K/mm3 (0.16-1.47); MONOCYTES PERCENT AUTO 19 % (4-13); Mean Corpuscular HGB 24.9 pg (26.0-34.0); Mean Corpuscular HGB Conc 30.9 g/dL (31.5-36.5); Mean Corpuscular Volume 81 fL (80-100); Mean Platelet Volume 10.8 fL (9.1-12.4); NEUTROPHILS ABSOLUTE AUTO 5.55 K/mm3 (1.96-9.15); NEUTROPHILS PERCENT AUTO 52 % (41-73); Platelet Count 158 K/mm3 (150-400); RDW Coefficient Variation 20.6 % (11.7-14.2); RDW Standard Deviation 59.5 fL (35.1-46.3); Red Blood Cell Count 3.73 M/mm3 (4.30-5.90); White Blood Cell Count 10.62 K/mm3 (4.00-11.30)
[2021-06-05 04:29] LABS: Alanine Aminotransfer (ALT/SGP 76 U/L (12-78); Albumin, Blood 1.9 g/dL (3.4-5.0); Albumin/Globulin Ratio 0.4 (0.8-1.8); Alk Phos 129 U/L (50-136); Anion Gap 10 mmol/L (6-16); Aspartate Aminotrans (AST/SGOT 138 U/L (12-37); Bilirubin, Total 2.4 mg/dL (0.1-1.0); Blood Urea Nitrogen 32 mg/dL (8-24); Bun/Creatinine Ratio 30.8 (12.0-20.0); CO2, Blood 25 mmol/L (21-32); Calcium, Blood 9.5 mg/dL (8.5-10.1); Chloride, Blood 108 mmol/L (98-108); Creatinine, Blood 1.04 mg/dL (0.60-1.20); Globulin, Blood 4.5 g/dL (2.2-4.0); Glomerular Filtration Rate >60 (60-); Glucose, Blood 116 mg/dL (70-99); Potassium, Blood 4.8 mmol/L (3.5-5.5); Sodium, Blood 143 mmol/L (136-145); Total Protein, Blood 6.4 g/dL (6.4-8.2)
[2021-06-05] MEDS ORDERED: BUME1 PO (05:32)
[2021-06-05 07:26] LABS: Influenza A, PCR NEGATIVE (NEGATIVE); Influenza B, PCR NEGATIVE (NEGATIVE); Resp Syncytial Virus, PCR NEGATIVE (NEGATIVE)
[2021-06-05 07:31] LABS: SARS-Cov-2 (COVID-19) PCR, MMC POSITIVE (NEGATIVE)
== END 2021-06-05 10:34 | disposition short-term general hospital (02) ==
LOC: ER 03:50
PROVIDERS: Emergency Medicine; Student in an Organized Health Care Education/Training Program
DX: U07.1 COVID-19 (principal); K92.2 Gastrointestinal hemorrhage, unspecified; E11.9 Type 2 diabetes mellitus without complications; E03.9 Hypothyroidism, unspecified; I10 Essential (primary) hypertension; Z79.899 Other long term (current) drug therapy
CPT/HCPCS: 0241U; 36415; 80053; 85025; 86850; 86900; 86901; 93005; 93010; 96374; 99285-25; C9113

== ENCOUNTER 2021-06-11 05:22 | Inpatient (IN) | payer MEDICARE ==
[~2021-06-11] VITALS: Ht 182.9 cm; Wt 181.4 kg
[2021-06-11 05:47] LABS: PCO2 Arterial 28.8 mmHg (35-45); PO2 Arterial 75.7 mmHg (80-100); pH Blood Arterial 7.42 (7.35-7.45)
[2021-06-11 05:53] LABS: BASOPHILS ABSOLUTE AUTO 0.11 K/mm3 (0.00-0.23); BASOPHILS PERCENT AUTO 1 % (0-2); EOSINOPHILS PERCENT AUTO 4 % (0-6); Hematocrit 26.4 % (37.0-53.0); Hemoglobin 8.1 g/dL (13.5-17.5); IMMATURE GRAN ABSOLUTE AUTO 0.49 K/mm3 (0.00-0.10); IMMATURE GRAN PERCENT AUTO 4 % (0-1); LYMPHOCYTES ABSOLUTE AUTO 5.13 K/mm3 (0.84-5.20); LYMPHOCYTES PERCENT AUTO 39 % (21-46); MONOCYTES ABSOLUTE AUTO 1.21 K/mm3 (0.16-1.47); MONOCYTES PERCENT AUTO 9 % (4-13); Mean Corpuscular HGB 25.6 pg (26.0-34.0); Mean Corpuscular HGB Conc 30.7 g/dL (31.5-36.5); Mean Corpuscular Volume 84 fL (80-100); Mean Platelet Volume 10.9 fL (9.1-12.4); NEUTROPHILS ABSOLUTE AUTO 5.72 K/mm3 (1.96-9.15); NEUTROPHILS PERCENT AUTO 44 % (41-73); NRBC Auto 0.8 /100 WBC (0.0-0.2); Platelet Count 195 K/mm3 (150-400); RDW Coefficient Variation 21.2 % (11.7-14.2); RDW Standard Deviation 64.1 fL (35.1-46.3); Red Blood Cell Count 3.16 M/mm3 (4.30-5.90); White Blood Cell Count 13.16 K/mm3 (4.00-11.30)
[2021-06-11 06:14] LABS: Alanine Aminotransfer (ALT/SGP 47 U/L (12-78); Albumin, Blood 1.2 g/dL (3.4-5.0); Albumin/Globulin Ratio 0.3 (0.8-1.8); Alk Phos 112 U/L (50-136); Anion Gap 9 mmol/L (6-16); Aspartate Aminotrans (AST/SGOT 52 U/L (12-37); Bilirubin, Total 1.2 mg/dL (0.1-1.0); Blood Urea Nitrogen 19 mg/dL (8-24); Bun/Creatinine Ratio 20.7 (12.0-20.0); CO2, Blood 21 mmol/L (21-32); Calcium, Blood 8.6 mg/dL (8.5-10.1); Chloride, Blood 114 mmol/L (98-108); Creatinine, Blood 0.92 mg/dL (0.60-1.20); Globulin, Blood 3.9 g/dL (2.2-4.0); Glomerular Filtration Rate >60 (60-); Glucose, Blood 157 mg/dL (70-99); Sodium, Blood 144 mmol/L (136-145); Total Protein, Blood 5.1 g/dL (6.4-8.2)
[2021-06-11 06:15] LABS: Calcium, Ionized (POC) 1.12 mmol/L (1.10-1.46); Chloride (POC) 109 mmol/L (98-108); Creatinine (POC) 0.9 mg/dL (0.8-1.3); Glucose (ISTAT POC) 167 mg/dL (70-99); Hemoglobin (POC) 7.1 g/dL (13.5-17.5); Potassium (POC) 3.8 mmol/L (3.5-5.5); Sodium (POC) 142 mmol/L (135-148); Total CO2 (POC) 17 mmol/L (21-32)
[2021-06-11 06:29] LABS: International Normalized Ratio 1.42; Prothrombin Time Results 14.6 Sec (9.7-11.5)
[2021-06-11 08:05] LABS: Hematocrit 38.6 % (37.0-53.0); Mean Corpuscular HGB 26.7 pg (26.0-34.0); Mean Corpuscular HGB Conc 31.1 g/dL (31.5-36.5); Mean Corpuscular Volume 86 fL (80-100); Mean Platelet Volume 10.4 fL (9.1-12.4); NRBC ABSOLUTE 0.16 K/mm3 (0.00-0.02); NRBC Auto 0.6 /100 WBC (0.0-0.2); Platelet Count 159 K/mm3 (150-400); RDW Coefficient Variation 18.9 % (11.7-14.2); RDW Standard Deviation 56.6 fL (35.1-46.3); Red Blood Cell Count 4.49 M/mm3 (4.30-5.90); White Blood Cell Count 28.95 K/mm3 (4.00-11.30)
--- NOTE | 2021-06-11 09:54 | NUR ---
06/11/21 0954 Ashley Yancey History, Chart, Medications and Allergies reviewed before start of procedure. Patient'S confirms NPO status and agrees with scheduled surgery. 3-LEAD EKG REVIEWED WITH PHYSICIAN PRIOR TO START OF PROCEDURE. MONITOR INTACT WITH CONTINUOUS PULSE OXIMETRY AND INTERMITTENT BP. PT ON A VENT, ICU NURSE DEVEN MANAGING AIRWAY, PROPOFOL DRIP.Bite Block ALREADY IN PLACE FROM VENT.
[2021-06-11 10:11] LABS: Influenza A, PCR NEGATIVE (NEGATIVE); Influenza B, PCR NEGATIVE (NEGATIVE); Resp Syncytial Virus, PCR NEGATIVE (NEGATIVE)
[2021-06-11 10:26] LABS: SARS-Cov-2 (COVID-19) PCR, MMC POSITIVE (NEGATIVE)
--- NOTE | 2021-06-11 10:34 | NUR ---
ADMIT PT ARRIVED TO ICU 7 AT 0853. PT VENTED AND LIGHTLY SEDATED. MOVED PT TO ICU BED. PT VERY WEAKLY FOLLOWING SIMPLE COMMANDS. LEVOPHED, OCTREOTIDE AND PRBC INFUSING. PT BECAME HYPOTENSIVE WHILE GETTING HIM SETTLED SO RATE OF PRBC INFUSION INCREASED AND LEVOPHED INCREASED. DAY SURGERY HERE TO DO EGD. PRBC COMPLETE AND DR. MCKEON SAID NOT TO GIVE FFP TO AVOID INCREASING PT'S VOLUME TOO MUCH, USE PRESSORS INSTEAD. DR. LOPES GAVE ORDER FOR VASOPRESSIN. PROPOFOL TURNED UP SLIGHTLY FOR PROCEDURE AND LEVOPHED HAD TO BE INCREASED WELL. PROPFOL DECREASED SOON EGD DONE BUT SBP STILL IN THE 60S WITH MAP IN THE 40S. DR. MCKEON STILL SAYS TO USE ONLY PRESSORS SO DR. HOWARD ORDERED MITCHELL-SYNEPHRINE, WAITING FOR THAT FROM PHARMACY. SEE FLOWSHEET FOR IV GTT TITRATIONS. PT'S FAMILY IN THE WAITING ROOM AND DR. MCKEON TALKING WITH THEM CURRENTLY.
--- NOTE | 2021-06-11 12:15 | NUR ---
REASSESSMENT PRESSORS HAVE CONTINUED TO NEED TO BE TITRATED UP TO MAINTAIN MAP AOBVE 60, SEE FLOWSHEET. PALLIATIVE CARE AND DR. LOPES SPOKE WITH PT'S AND DAUGHTER. DECISION WAS MADE TO SWITCH PT TO COMFORT CARE AFTER FAMILY IS ABLE TO HAVE A LITTLE TIME WITH HIM AND SAY GOODBYE. FAMILY IS CURRENTLY WAITING ON A CRACKING AND FANNING MACHINE OPERATOR THEN THEY SAID THEY ARE READY. COMFORT CARE ORDERS IN PLACE. CONTINUING TO MONITOR AND PROVIDE SUPPORT NEEDED.
--- NOTE | 2021-06-11 13:22 | NUR ---
COMFORT CARE FAMILY IS READY TO EXTUBATE AND SWITCH PT TO COMFORT MEASURES ONLY. ANDREA, RT NOTIFIED AND PT EXTUBATED AT 1334 AFTER RECEIVING 4MG OF MORPHINE FOR COMFORT. ALL GTTS STOPPED AT THIS TIME WELL. PT STILL APPEARED A LITTLE RESTLESS SO ATIVAN AND ANOTHER DOSE OF MORPHINE GIVEN. PT APPEARES TO BE RESTING COMFORTABLY. PT'S AND DAUGHTER ARE AT THE BEDSIDE. HONG, PALLIATIVE RN, IS IN WITH FAMILY WELL. COTNINUING TO MONITOR.
--- NOTE | 2021-06-11 14:00 | NUR ---
PT'S TIME OF WAS 1345. LACK OF HEARTBEAT CONFIRMED BY THIS RN AND ALISHA PITTS VIA AUSCULTATION. ALSO CONFIRMED WITH LACK OF ELECTRICAL ACTIVITY ON HEART MONITOR. FAMILY INFORMED. SUPPORT PROVIDED.
--- NOTE | 2021-06-11 14:25 | NUR ---
Assissted nursing with terminal withdrawl. family chose [facility].
== END 2021-06-11 13:45 | DRG 432 ==
LOC: ER 05:22 → PCU 07:58 → ICUE 07:58 → ICUW 07:58 → ICUE 08:55
PROVIDERS: Emergency Medicine; Student in an Organized Health Care Education/Training Program; ADMIT Family Medicine
PROC: 5A1935Z Respiratory Ventilation, Less than 24 Consecutive Hours (ICD-10-PCS; 2021-06-11)
PROC: 30233N1 Transfusion of Nonautologous Red Blood Cells into Peripheral Vein, Percutaneous Approach (ICD-10-PCS; 2021-06-11)
PROC: 8E0ZXY6 Isolation (ICD-10-PCS; 2021-06-11)
PROC: 0DJ08ZZ Inspection of Upper Intestinal Tract, Via Natural or Artificial Opening Endoscopic (ICD-10-PCS; 2021-06-11)
PROC: 05HM33Z Insertion of Infusion Device into Right Internal Jugular Vein, Percutaneous Approach (ICD-10-PCS; 2021-06-11)
PROC: 3E033XZ Introduction of Vasopressor into Peripheral Vein, Percutaneous Approach (ICD-10-PCS; 2021-06-11)
PROC: 0BH18EZ Insertion of Endotracheal Airway into Trachea, Via Natural or Artificial Opening Endoscopic (ICD-10-PCS; principal; 2021-06-11 09:30)
DX: K74.60 Unspecified cirrhosis of liver (principal); I85.11 Secondary esophageal varices with bleeding; U07.1 COVID-19; E27.1 Primary adrenocortical insufficiency; Z68.43 Body mass index [BMI] 50.0-59.9, adult; E87.2 Acidosis; Z51.5 Encounter for palliative care; Z79.899 Other long term (current) drug therapy; Z79.82 Long term (current) use of aspirin; E03.9 Hypothyroidism, unspecified; I12.9 Hypertensive chronic kidney disease with stage 1 through stage 4 chronic kidney disease, or unspecified chronic kidney disease; N28.9 Disorder of kidney and ureter, unspecified; G89.29 Other chronic pain; Z98.890 Other specified postprocedural states; Z96.643 Presence of artificial hip joint, bilateral; Z79.84 Long term (current) use of oral hypoglycemic drugs; R57.1 Hypovolemic shock; E11.22 Type 2 diabetes mellitus with diabetic chronic kidney disease; K75.81 Nonalcoholic steatohepatitis (NASH); R57.8 Other shock; Z78.1 Physical restraint status; Z66 Do not resuscitate
CPT/HCPCS: 0241U; 36415; 36430; 36556; 36600; 51702; 71045; 80047; 80053; 82803; 83605; 83690; 84484; 85014; 85025; 85027; 85610; 86850; 86900; 86901; 86923; 93005; 93010; 96365; 96375; 99291-25; C1751; C9113; G0480; J0171; J0696; J1430; J2060; J2250; J2270; J2354; J2370; J2405; J2704; J2765; J7030; J7040; J7050; J7060; P9016